=== PATIENT | female | born 1965 | race Caucasian/White ===

== ENCOUNTER 2022-08-02 08:46 | Day surgery (SDC) | payer BC ==
[~2022-08-02 08:46] MED LIST: Lactated Ringers 1,000 ML IV SCH; Sodium Chloride 0.9% 10 ML Syringe FLUSH PRN; Sodium Chloride 0.9% 2.5 ML Syringe FLUSH PRN; Sodium Chloride 0.9% 20 ML SDV IV PRN
[2022-08-02] MEDS ORDERED: Propofol 200 MG/20 ML SDV ONE (09:51)
[2022-08-02] MEDS ORDERED: fentaNYL 100 MCG/2 ML SDV ONE (09:51)
[2022-08-02] MEDS ORDERED: Lidocaine 2% 5 ML SDV ONE (09:51)
== END 2022-08-02 11:35 | disposition home or self-care (01) ==
LOC: MW.SDS 08:46
PROVIDERS: ATTEND Surgery
DX: Z12.11 Encounter for screening for malignant neoplasm of colon (principal); D12.5 Benign neoplasm of sigmoid colon; E66.9 Obesity, unspecified; Z68.35 Body mass index [BMI] 35.0-35.9, adult; Z79.899 Other long term (current) drug therapy; Z98.890 Other specified postprocedural states
CPT/HCPCS: 45380; J2704; J3010; J7120